=== PATIENT | female | born 2005 | race African-American/Black ===

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

== ENCOUNTER → 2025-01-29 | Outpatient (CLI) | payer BC, OTHER ==
[2025-01-30 01:52] LABS: HCT 40.9 % (37.2-46.3); HGB 12.7 g/dL (12.0-15.0); MCH 27.5 pg (27.0-32.0); MCHC 31.1 g/dL (32.0-37.0); MCV 88.5 FL (80.0-97.0); NRBC Per 100 WBC 0 X 10*3/uL (0.00-0.01); Platelet Count 362 X 10*3/uL (140-440); RBC 4.62 X 10*6/uL (4.10-5.20); RDW 14.6 % (11.5-14.5); WBC 6.14 X 10*3/uL (4.50-10.00)
[2025-01-30 02:41] LABS: ALT 11 U/L (8-44); AST 17 U/L (13-35); Albumin 4.3 g/dL (3.8-4.9); Albumin/Globulin Ratio 1.79 Ratio (1.60-3.17); Alkaline Phosphatase 62 U/L (41-126); Anion Gap 9.00 mmol/L (4.00-12.00); BUN/Creat Ratio 7.57 Ratio (12.00-20.00); Blood Urea Nitrogen 5.3 mg/dL (9.0-27.0); Calcium 9.7 mg/dL (8.7-10.3); Carbon Dioxide 23.0 mmol/L (21.6-31.8); Chloride 108 mmol/L (96-109); Globulin 2.4 g/dL (1.6-3.3); Glucose 85 mg/dL (70-110); Potassium 4.5 mmol/L (3.5-5.5); Sodium 140 mmol/L (135-145); Total Protein 6.7 g/dL (6.2-8.2)
== END | disposition home or self-care (01) ==
LOC: LABWHC1 16:11
PROVIDERS: ATTEND Family Medicine
DX: E55.9 Vitamin D deficiency, unspecified (principal); R53.83 Other fatigue; Z79.899 Other long term (current) drug therapy
CPT/HCPCS: 36415; 80053; 82306; 83036; 85027

== ENCOUNTER 2025-02-27 12:07 | Emergency (ER) | payer BC, OTHER ==
[2025-02-27 12:11] VITALS: TEMP 98.9
--- NOTE | 2025-02-27 12:34 | ED ---
General Adult HPI - General Chief complaint: Headache Stated complaint: Headache Time Seen by Provider: 02/27/25 12:12 Source: patient Mode of arrival: ambulatory Limitations: no limitations - History of Present Illness Initial comments: Dictation was produced using [employer] dictation software. please excuse any grammatical, word or spelling errors. Chief Complaint: 19-year-old female presents emergency department 1 to 2 days of headache History of Present Illness: Patient is 19-year-old female with history of migraines. Presents to the ER for headache. Patient was seen in urgent care today. She reported that she had associated neck stiffness, vomiting. She was sent here for concerns of meningitis. Patient has a history of migraines had workup for headaches in the past which included negative MRI. She gets migraine headaches often. States that typically they are one-sided mostly at the left forehead left temporal area. States that this headache seems to feel holocranial. States that she feels like she has some tightness in her neck. Denies any fever chills night sweats. Denies any constitutional symptoms. Denies any rash. Patient denies states she takes control The ROS documented in this emergency department record has been reviewed and confirmed by me. Those systems with pertinent positive or negative responses have been documented in the HPI. All other systems are other negative and/or noncontributory. - Related Data Home Medications Medication Instructions Recorded Confirmed Larissia 1 tab PO HS 07/08/21 07/08/21 Omeprazole 20 mg PO HS 07/08/21 07/08/21 Previous Rx's Medication Instructions Recorded Azithromycin [Zithromax] 250 mg PO DIRECTED 5 Days #6 tab 06/07/24 Benzonatate [Tessalon Perle] 200 mg PO TID PRN #20 capsule 06/07/24 Ondansetron Odt [Zofran Odt] 4 mg PO Q8HR PRN #20 tab 06/07/24 Fluticasone Propionate [Flonase 1 spray EA NOSTRIL DAILY #9.9 ml 09/10/24 Allergy Relief] Amoxicillin 500 mg PO Q12HR 10 Days #20 cap 12/17/24 Allergies Allergy/AdvReac Type Severity Reaction Status Date / Time No Known Allergies Allergy Verified 02/27/25 12:11 Review of Systems ROS Statement: Those systems with pertinent positive or pertinent negative responses have been documented in the HPI. ROS Other: All systems not noted in ROS Statement are negative. Past Medical History Past Medical History: No Reported History History of Any Multi-Drug Resistant Organisms: None Reported Past Surgical History: No Surgical Hx Reported Additional Past Surgical History / Comment(s): EGD Past Psychological History: No Psychological Hx Reported Smoking Status: Never smoker Past Alcohol Use History: None Reported Past Drug Use History: None Reported General Exam - General Exam Comments Initial Comments: PHYSICAL EXAM: General Impression: Alert and oriented x3, not in acute distress HEENT: Normocephalic atraumatic, extra-ocular movements intact, pupils equal and reactive to light bilaterally, mucous membranes moist. Cardiovascular: Heart regular rate and rhythm Chest: Able to complete full sentences, no retractions, no tachypnea Abdomen: abdomen soft, non-tender, non-distended, no organomegaly Musculoskeletal: Pulses present and equal in all extremities, no peripheral edema Motor: no focal deficits noted Neurological: CN II-XII grossly intact, no focal motor or sensory deficits noted, negative Kernig's, negative Brudzinski, negative Lhermitte's Skin: Intact with no visualized rashes Psych: Normal affect and mood Limitations: no limitations Course Vital Signs 02/27/25 02/27/25 12:08 18:21 Temperature 98.9 F Pulse Rate 98 89 Respiratory 18 16 Rate Blood Pressure 101/70 96/57 O2 Sat by Pulse 100 97 Oximetry Medical Decision Making - Medical Decision Making Was pt. sent in by a medical professional or institution (, PA, SENIOR BUSINESS BROKER, urgent ca re, hospital, or intermediate...) When possible be specific @ -No Did you speak to anyone other than the patient for history (EMS, parent, family, police, friend...)? What history was obtained from this source @ -No Did you review nursing and triage notes (agree or disagree)? Why? @ -I reviewed and agree with nursing and triage notes Were old charts reviewed (outside hosp., previous admission, EMS record, old EKG, old radiological studies, urgent care reports/EKG's, intermediate records)? Report findings @ -No old charts were reviewed Differential Diagnosis (chest pain, altered mental status, abdominal pain women, abdominal pain men, vaginal bleeding, musculoskeletal, weakness, fever, dyspnea, syncope, headache, dizziness, GI bleed, back pain, seizure, CVA, palpatations, mental health)? @ -Differential Headache: Migraine, tension, cluster, carbon monoxide, central venous thrombosis, pension karma temporal arteritis, acute closure glaucoma, intercranial hemorrhage, mastoiditis, sinusitis, head injury, this is not meant to be an all-inclusive list. EKG interpreted by me (3pts min.). @ -None done X-rays interpreted by me (1pt min.). @ -None done CT interpreted by me (1pt min.). @ -None done U/S interpreted by me (1pt. min.). @ -None done What testing was considered but not performed or refused? (CT, X-rays, U/S, labs)? Why? @ -None What meds were considered but not given or refused? Why? @ -None Was smoking cessation discussed for >3mins.? @ -No Were there social determinants of health that impacted care today? How? (Homelessness, low income, unemployed, alcoholism, drug addiction, transportation, low edu. Level, literacy, decrease access to med. care, long-term, rehab)? @ -No Was there de-escalation of care discussed even if they declined (Discuss DNR or withdrawal of care, Hospice)? DNR status @ -No What co-morbidities impacted this encounter? (DM, HTN, Smoking, COPD, CAD, Cancer, CVA, ARF, Chemo, Hep., AIDS, mental health diagnosis, sleep apnea, morbi d obesity)? @ -History of migraine Was patient admitted / discharged? Hospital course, mention meds given and route, prescriptions, significant lab abnormalities, going to OR and other pertinent info. @ -19 -year-old female presents to the emergency department for headache. Sent in from urgent care for concerns of meningitis. Patient has benign physical examination. She has history of headaches. Vital signs stable. Laboratory evaluation obtained. Labs unremarkable. Patient given multiple headache cocktails with almost complete resolution of her symptoms. Patient has no high risk features discharged told to follow-up with primary care doctor Did you discuss the management of the patient with other professionals (professionals i.e. , PA, SENIOR BUSINESS BROKER, lab, RT, psych nurse, social work msw, chief station engineer, teacher, light armored reconnaissance officer, case maker)? Give summary @ -No Was critical care preformed (if so, how long)? @ -No Undiagnosed new problem with uncertain prognosis? @ -No Drug Therapy requiring intensive monitoring for toxicity (Heparin, Nitro, Insulin, Cardizem)? @ -No Were any procedures done? @ -No Diagnosis/symptom? Acute, or Chronic, or Acute on Chronic? Uncomplicated (without systemic symptoms) or Complicated (systemic symptoms)? @ -Headache Side effects of treatment? @ -No Exacerbation, Progression, or Severe Exacerbation? @ -No Poses a threat to life or bodily function? How? (Chest pain, [place], [place], pneumonia, PE, COPD, DKA, ARF, appy, cholecystitis, CVA, Diverticulitis, Homicidal, Suicidal, threat to staff... and all critical care pts) @ -yes - Lab Data Result diagrams: 02/27/25 13:12 02/27/25 13:12 Lab Results 02/27/25 02/27/25 02/27/25 Range/Units 12:35 13:12 13:12 WBC 8.71 (4.50-10.00) 10*3/uL RBC 5.40 H (4.10-5.20) 10*6/uL Hgb 15.3 H (12.0-15.0) g/dL Hct 46.8 H (37.2-46.3) % MCV 86.7 (80.0-97.0) fL MCH 28.3 (27.0-32.0) pg MCHC 32.7 (32.0-37.0) g/dL Plt Count 342 (140-440) 10*3/uL MPV 9.5 (9.5-12.2) fL Immature Gran % (Auto) 0.2 % Neutrophils % 77.4 % Lymphocytes % 15.8 % Monocytes % 6.3 % Eosinophils % 0.1 % Basophils % 0.2 % Immature Gran # 0.02 (0.00-0.04) 10*3/uL Neutrophils # 6.73 (1.80-7.70) 10*3/uL Lymphocytes # 1.38 (0.90-5.00) 10*3/uL Monocytes # 0.55 (0.20-1.00) 10*3/uL Eosinophils # 0.01 L (0.04-0.35) 10*3/uL Basophils # 0.02 (0.00-0.10) 10*3/uL Sodium 138 (137-145) mmol/L Potassium 4.8 (3.5-5.1) mmol/L Chloride 103 (98-107) mmol/L Carbon Dioxide 20 L (22-30) mmol/L Anion Gap 15 mmol/L BUN 7 (7-17) mg/dL Creatinine 0.64 (0.52-1.04) mg/dL Est GFR (CKD-EPI)AfAm >90 (>60 ml/min/1.73 sqM) Est GFR (CKD-EPI)NonAf >90 (>60 ml/min/1.73 sqM) Glucose 70 L (74-99) mg/dL Calcium 10.0 (8.4-10.2) mg/dL Urine HCG, Qual Not Detected (Not Detectd) Disposition Clinical Impression: Headache Disposition: HOME SELF-CARE Condition: Good Instructions (If sedation given, give patient instructions): Acute Headache (ED) Is patient prescribed a controlled substance at d/c from ED?: No Referrals: Emanuel Orellana MD [Primary Care Provider] - 1-2 days Time of Disposition: 18:48
[2025-02-27] MEDS: SODIUM CHLORIDE 0.9% 1,000 ML IV STA (13:08)
[2025-02-27] MEDS: ONDANSETRON 4 MG/2 ML VIAL IVP STA (13:09)
[2025-02-27] MEDS: KETOROLAC 15 MG/ML 1 ML VIAL IVP STA (13:10)
[2025-02-27] MEDS: diphenhydrAMINE 50 MG/ML 1 ML VIAL IVP STA (13:11)
[2025-02-27 13:26] LABS: Basophils # (A) 0.02 10*3/uL (0.00-0.10); Basophils % (A) 0.2 %; Eosinophils # (A) 0.01 10*3/uL (0.04-0.35); Eosinophils % (A) 0.1 %; HCT 46.8 % (37.2-46.3); HGB 15.3 g/dL (12.0-15.0); Lymphocytes # (A) 1.38 10*3/uL (0.90-5.00); Lymphocytes % (A) 15.8 %; MCH 28.3 pg (27.0-32.0); MCHC 32.7 g/dL (32.0-37.0); MCV 86.7 fL (80.0-97.0); Monocytes # (A) 0.55 10*3/uL (0.20-1.00); Monocytes % (A) 6.3 %; Neutrophils # (A) 6.73 10*3/uL (1.80-7.70); Neutrophils % (A) 77.4 %; Platelet Count 342 10*3/uL (140-440); RBC 5.40 10*6/uL (4.10-5.20); RDW 14.3 % (11.5-14.5); WBC 8.71 10*3/uL (4.50-10.00)
[2025-02-27 13:39] LABS: African American GFR (CKD) >90 (>60 ml/min/1.73 sqM); Anion Gap 15 mmol/L; Blood Urea Nitrogen 7 mg/dL (7-17); Calcium 10.0 mg/dL (8.4-10.2); Carbon Dioxide 20 mmol/L (22-30); Chloride 103 mmol/L (98-107); Glucose 70 mg/dL (74-99); Non-African American GFR(CKD) >90 (>60 ml/min/1.73 sqM); Sodium 138 mmol/L (137-145)
[2025-02-27 13:43] LABS: Potassium 4.8 mmol/L (3.5-5.1)
[2025-02-27] MEDS: DEXAMETHASONE SOD PHOSPHATE 10 MG/ML 1 ML VIAL IV STA (16:53)
[2025-02-27] MEDS: MAGNESIUM SULFATE-D5W PMX 1 GM in DEXTROSE/WATER 1 100ML.BAG IVPB SCH (16:56)
[2025-02-27 18:22] VITALS: BP 96/57; PULSE 89; RESP 16
== END 2025-02-27 19:05 | disposition home or self-care (01) ==
LOC: EC 12:07
DX: G43.909 Migraine, unspecified, not intractable, without status migrainosus (principal)
CPT/HCPCS: 36415; 80048; 85025; 81025; 99283; 96365; 96366; 96375; 96361; J1200; J1100; J2405; J3475; J1885